=== PATIENT | male | born 1940 | race Caucasian/White ===

== ENCOUNTER 2017-07-21 11:06 | Outpatient (CLI) | payer MEDICARE, OTHER ==
[2017-07-21] MEDS ORDERED: FERUMOXYTOL (NON-ESRD) 510 MG/NS 100 ML IV PRN ×2 (11:19)
[2017-07-21] MEDS ORDERED: NORMAL SALINE 250 ML IV PRN (11:21)
[2017-07-21 11:26] VITALS: BP 129/60
== END 2017-07-21 12:29 | disposition home or self-care (01) ==
LOC: II 11:06 → 5TH 11:12 → II 12:29
PROVIDERS: ATTEND Internal Medicine
PROC: 3E033GC Introduction of Other Therapeutic Substance into Peripheral Vein, Percutaneous Approach (ICD-10-PCS; principal; 2017-07-21)
DX: D50.8 Other iron deficiency anemias (principal); N18.2 Chronic kidney disease, stage 2 (mild)
CPT/HCPCS: 96367; Q0138; 96365

== ENCOUNTER 2017-07-28 09:41 | Outpatient (CLI) | payer MEDICARE, OTHER ==
[~2017-07-28 09:41] MED LIST: FERUMOXYTOL (NON-ESRD) 510 MG/NS 100 ML IV PRN; NORMAL SALINE 250 ML IV PRN
[2017-07-28 10:00] VITALS: BP 142/70
== END 2017-07-28 10:46 | disposition home or self-care (01) ==
LOC: II 09:41 → 5TH 09:41 → II 10:46
PROVIDERS: ATTEND Internal Medicine
PROC: 3E033GC Introduction of Other Therapeutic Substance into Peripheral Vein, Percutaneous Approach (ICD-10-PCS; principal; 2017-07-28)
DX: D50.8 Other iron deficiency anemias (principal); N18.2 Chronic kidney disease, stage 2 (mild)
CPT/HCPCS: 96365; Q0138

== ENCOUNTER → 2017-10-11 | Outpatient (CLI) | payer MEDICARE, OTHER ==
--- NOTE | 2017-10-11 10:03 | RADIOLOGY REPORT (SQ) ---
EXAM DESCRIPTION: MRI LUMBAR SPINE WITHOUT COMPLETED DATE/TIME: 10/11/2017 8:41 am REASON FOR STUDY: BACK PAIN (M54.9) M54.9 DORSALGIA, UNSPECIFIED COMPARISON: None. TECHNIQUE: Sagittal and Axial imaging includes T1, T2, STIR and gradient echo sequences. Coronal T2/ HASTE imaging. LIMITATIONS: None. FINDINGS: VISUALIZED UPPER ABDOMEN: Stones in the gallbladder SEGMENTATION: No transitional anatomy. The lowest well-developed disc space is labeled L5-S1. ALIGNMENT: Anatomic. VERTEBRAE: Intact. BONE MARROW: Hemangioma in the L3 vertebral body. Fatty degenerative endplate changes at L4-5 DISC SIGNAL: Diffuse decreased T2 weighted intervertebral disc signal from L2-3 through L5-S1 POSTERIOR ELEMENTS: Generally intact. No pars defect evident. HARDWARE: None in the spine. CORD AND CONUS: Normal in size and signal intensity. Conus at the L2 level. SOFT TISSUES: No aortic aneurysm seen. No bulky retroperitoneal adenopathy or mass. No paraspinal mas s or fluid. T11-12: At the upper edge of the field of view. Bilateral facet arthropathy is present without cent ral or foraminal encroachment. T12-L1: No central or foraminal encroachment. Mild bilateral facet hypertrophy L1-L2: No central or foraminal stenosis. Mild bilateral facet hypertrophy. L2-L3: Broad diffuse posterior disc bulging is present left greater than right with moderate bilatera l facet hypertrophy. Mild central canal stenosis. Mild right and moderate left foraminal narrowing without definite exiting L2 nerve root impingement. L3-L4: Broad diffuse posterior disc bulge and bony spurring. Moderate bilateral facet and ligament h ypertrophy. Mild central canal stenosis. Mild bilateral foraminal narrowing. L4-L5: Broad diffuse posterior disc bulging and bony spurring is present along with moderate bilatera l facet and ligament hypertrophy. This causes mild central canal stenosis. Moderate bilateral leda inal narrowing without definite exiting L4 nerve root impingement L5-S1: Mild posterior diffuse disc bulging, mild facet and ligament hypertrophy. No significant cent ral or foraminal stenosis SACRUM: Visualized upper sacrum intact. OTHER: No other significant findings. IMPRESSION: Multilevel degenerative changes as above TECHNICAL DOCUMENTATION: JOB ID: [id number] [employer]- All Rights Reserved Reading location - IP/workstation name: [email or web address]
== END ==
LOC: RAD 07:57
PROVIDERS: ATTEND Physician Assistant
DX: M54.9 Dorsalgia, unspecified (principal); M47.897 Other spondylosis, lumbosacral region
CPT/HCPCS: 72148